=== PATIENT | female | born 1950 | race Caucasian/White ===

== ENCOUNTER → 2018-04-21 | Outpatient (CLI) | payer MEDICARE, BC ==
[~2018-04-21] MED LIST: ALLOPURINOL300 MG PO; ASPIRIN 81M81 MG/TA2 PO; CALTRATE-600 W600 MG PO; DIOVAN160 MG PO; FERROUS SU325 MG/TAB PO; FOLIC ACID PO; GINGER ROOT EX250 MG PO; GINKO BILOBA120 MG PO; GLUCOSAMINE500 M2 PO; HYDRODIURIL50 MG PO; HYZAAR 50-12.1 UDTAB PO; K-DUR 10 MEQ T10 MEQ PO; MASON NATURAL1200 MG PO; MOTRIN 200200 MG/TAB PO; MULTIVITAMIN PO; NATURE'S BL400 IU/ML PO; NORVASC 10MG10 MG PO; NORVASC5 MG PO; PRILOSEC 20MG20 MG PO; SUPER EPA 1201200 MG PO; TENORETIC 50 501 TAB PO; VICODIN 5/5001 UDTAB PO; VITAMIN C1 TAB PO; VITAMIN C500 MG PO; VITAMIN E28000 IU TP; VYTORIN PO; ZOCOR 40MG40 MG PO; ZYLOPRIM300 MG PO
== END ==
LOC: MHCPAIN 09:26
DX: G89.29 Other chronic pain (principal); M47.817 Spondylosis without myelopathy or radiculopathy, lumbosacral region; M54.16 Radiculopathy, lumbar region; M53.3 Sacrococcygeal disorders, not elsewhere classified; M48.061 Spinal stenosis, lumbar region without neurogenic claudication
CPT/HCPCS: G0463

== ENCOUNTER 2018-04-23 08:50 | Outpatient (CLI) | payer MEDICARE, BC ==
[2018-04-23] VITALS (7 sets, daily range): BP systolic 125–174; BP diastolic 63–86; PULSE 94–106; TEMP 98.8
[~2018-04-23] VITALS: Ht 154.9 cm; Wt 87.9 kg
== END 2018-04-23 12:04 | disposition home or self-care (01) ==
LOC: COL.RAD 08:50
DX: M51.27 Other intervertebral disc displacement, lumbosacral region (principal); M51.37 Other intervertebral disc degeneration, lumbosacral region; M51.34 Other intervertebral disc degeneration, thoracic region

== ENCOUNTER → 2018-05-07 | Outpatient (CLI) | payer MEDICARE, BC | LOC: MHCPAIN 08:18 | DX: M54.16 Radiculopathy, lumbar region (principal) | CPT/HCPCS: J1100; Q9967 ==

== ENCOUNTER → 2018-05-18 | Outpatient (CLI) | payer MEDICARE, BC | LOC: MHCPAIN 09:50 | DX: G89.29 Other chronic pain (principal); M47.817 Spondylosis without myelopathy or radiculopathy, lumbosacral region; M54.16 Radiculopathy, lumbar region; M53.3 Sacrococcygeal disorders, not elsewhere classified; M48.061 Spinal stenosis, lumbar region without neurogenic claudication | CPT/HCPCS: G0463 ==

== ENCOUNTER → 2018-05-21 | Outpatient (CLI) | payer MEDICARE, BC | LOC: MHCPAIN 08:23 | DX: M54.16 Radiculopathy, lumbar region (principal) | CPT/HCPCS: J1100; Q9967 ==

== ENCOUNTER → 2018-06-16 | Outpatient (CLI) | payer MEDICARE, BC | LOC: MHCPAIN 09:11 | DX: G89.29 Other chronic pain (principal); M47.817 Spondylosis without myelopathy or radiculopathy, lumbosacral region; M54.16 Radiculopathy, lumbar region; M53.3 Sacrococcygeal disorders, not elsewhere classified; M96.1 Postlaminectomy syndrome, not elsewhere classified; M47.814 Spondylosis without myelopathy or radiculopathy, thoracic region | CPT/HCPCS: G0463 ==

== ENCOUNTER → 2018-07-08 | Outpatient (REF) ==
[2018-07-08 16:12] LABS: IRON,SERUM 77 ug/dL (35-150)
[2018-07-08 16:22] LABS: TOTAL IRON BINDING CAPACITY 308 ug/dL (265-497)
== END ==
LOC: ZLAB.WCH 15:57
PROVIDERS: Family Medicine
DX: Z01.89 Encounter for other specified special examinations (principal)

== ENCOUNTER → 2019-02-09 | Outpatient (REF) | LOC: ZLAB.WCH 14:13 | DX: Z01.89 Encounter for other specified special examinations (principal) ==

== ENCOUNTER → 2019-02-15 | Outpatient (CLI) | payer MEDICARE, BC | LOC: COL.VAS 12:03 | DX: I63.89 Other cerebral infarction (principal) ==

== ENCOUNTER → 2019-05-31 | Outpatient (CLI) | payer MEDICARE, BC | LOC: MHCPAIN 14:51 | DX: G89.29 Other chronic pain (principal); M54.12 Radiculopathy, cervical region; M47.812 Spondylosis without myelopathy or radiculopathy, cervical region | CPT/HCPCS: G0463 ==

== ENCOUNTER → 2019-08-03 | Outpatient (CLI) | payer MEDICARE, BC | LOC: MHCPAIN 09:07 | DX: G89.29 Other chronic pain (principal); M47.812 Spondylosis without myelopathy or radiculopathy, cervical region | CPT/HCPCS: G0463 ==